=== PATIENT | male | born 1965 | race Caucasian/White ===

== ENCOUNTER 2019-05-27 17:40 | Emergency (ER) | payer MEDICARE, MEDICAID ==
[~2019-05-27] VITALS: Ht 167.6 cm; Wt 88.0 kg
--- NOTE | 2019-05-27 17:50 | NUR ---
PT PLACED ON NIBP, CONT PULSE OX, CARD MONITOR
--- NOTE | 2019-05-27 17:53 | NUR ---
PT INTOXICATED, PER EMS PT DRANK 1 PINT OF VODKA TODAY. PT ARROUSABLE BUT DROWSY, THEN WHEN ASKED ABOUT HIS CP HE BEGINGS TO SHAKE AND STATE ITS 9/10. THEN HE QUICKY FALLS BACK TO SLEEP. PT WITH HX OF PE, NON COMPLIANT WITH BLOOD THINNERS
[2019-05-27] MEDS ORDERED: KETOROLAC 30 MG/1 ML ONE (18:17)
[2019-05-27] MEDS ORDERED: ONDANSETRON 2MG/ML, 2ML ONE (18:17)
--- NOTE | 2019-05-27 18:23 | NUR ---
PT MEDICATED PER MAR, ORCHARD HAND TRYING TO OBTAIN LABS, PT WITH POOR VENOUS ACCESS
[2019-05-27] MEDS ORDERED: KETOROLAC 30 MG/1 ML IVPush ONE (18:30)
[2019-05-27] MEDS ORDERED: ONDANSETRON 2MG/ML, 2ML IVPush ONE (18:30)
[2019-05-27 18:37] LABS: BASOPHILS # (AUTO) 0.04 x10^3/uL (0-0.1); BASOPHILS % (AUTO) 1 % (0-1); EOSINOPHILS # (AUTO) 0.13 x10^3/uL (0-0.4); EOSINOPHILS % (AUTO) 2 % (1-7); LYMPHOCYTES # (AUTO) 1.92 x10^3/uL (1-3.4); LYMPHOCYTES % (AUTO) 28 % (22-44); MD NO; MEAN CORPUSCULAR HEMOGLOBIN 32.3 pg (27.5-34.5); MEAN CORPUSCULAR HGB CONC 33.1 g/dL (33.2-36.2); MEAN CORPUSCULAR VOLUME 97.6 fL (81-97); MEAN PLATELET VOLUME 8.9 fL (7.4-10.4); MONOCYTES # (AUTO) 0.38 x10^3/uL (0.2-0.8); MONOCYTES % (AUTO) 5 % (2-9); NEUTROPHILS # (AUTO) 4.46 x10^3/uL (1.8-6.8); NEUTROPHILS % (AUTO) 64 % (42-75); PLATELET COUNT 267 x10^3/uL (130-400); RED BLOOD COUNT 4.32 x10^6/uL (4.38-5.82); RED CELL DISTRIBUTION WIDTH 17.3 % (9.4-14.8)
[2019-05-27 18:46] LABS: ALBUMIN 3.3 g/dL (3.4-5.0); ANION GAP 11 mmol/L (5-15); CALCIUM 8.2 mg/dL (8.5-10.1); CHLORIDE 106 mmol/L (98-107); CREATININE 0.93 mg/dL (0.7-1.3)
[2019-05-27 18:50] LABS: TROPONIN I < 0.015 ng/mL (0.000-0.045)
--- NOTE | 2019-05-27 19:11 | NUR ---
RECEIVED REPORT FROM GINA THOMAS TO ASSUME CARE OF PT.
--- NOTE | 2019-05-27 19:30 | NUR ---
PT. REPORTS PAIN IS DOWN TO 4/10. PT. GIVEN URINAL AND SAMPLE REQUESTED. PT. ATTEMPTING NOW. PT. GIVEN CALL LIGHT. ALL MONIORS IN PLACE.
--- NOTE | 2019-05-27 20:26 | NUR ---
DRUG SCREEN PENDING.
[2019-05-27 20:27] LABS: AMPHETAMINE SCREEN, URINE Negative (Negative); BARBITURATE SCREEN, URINE Negative (Negative); BENZODIAZEPINE SCREEN, URINE Positive (Negative); CANNABINOID SCREEN, URINE Positive (Negative); COCAINE SCREEN, URINE Negative (Negative); METHADONE SCREEN, URINE Negative (Negative); OPIATE SCREEN, URINE Negative (Negative)
[2019-05-27 21:05] VITALS: BP 126/86
== END 2019-05-27 21:07 | disposition home or self-care (01) ==
LOC: ED 19:37
DX: R07.89 Other chest pain (principal); F10.129 Alcohol abuse with intoxication, unspecified; F12.129 Cannabis abuse with intoxication, unspecified; Z72.9 Problem related to lifestyle, unspecified
CPT/HCPCS: 36415; 71045; 80048; 80307; 82040; 84484; 85025; 93005; 96374; 96375; 99284; J1885; J2405

== ENCOUNTER 2019-05-28 22:48 | Emergency (ER) | payer MEDICARE, MEDICAID | END 2019-05-28 23:11 | disposition left against medical advice (07) | LOC: ED 23:05 | DX: T74.21XA Adult sexual abuse, confirmed, initial encounter (principal); Z53.21 Procedure and treatment not carried out due to patient leaving prior to being seen by health care provider ==